=== PATIENT | female | born 1990 | race Hispanic/Latino ===

== ENCOUNTER 2018-12-24 12:45 | Outpatient (CLI) | payer OTHER ==
--- NOTE | 2018-12-24 14:43 | ULT ---
RIGHT BREAST ULTRASOUND: Date: 12/24/18 HISTORY: Palpable abnormality in the right upper inner breast. FINDINGS: Correlation is made with mammogram of same date. Sonographic evaluation of the right upper outer breast was performed. There is a dilated duct at the 1 o'clock position with presence of an echogenic mass within this duct measuring about 6.0 mm. The di lated portion of the duct measures about 11.0 mm. IMPRESSION: BIRADS Category 4 - Suspicious abnormality. Ultrasound guided biopsy is recommended. Discussed in person with the patient at 1411 hours. CODE CR. POS: OFF
--- NOTE | 2018-12-27 13:41 | MMO ---
MAMMO Bilat Diag [facility]. CLINICAL HISTORY: Patient is 28 years old and is seen for diagnostic exam and palpable abnormality in the right breast. The patient has no family history of breast cancer. The patient has no personal history of cancer. The patient has a history of left Excisional Biopsy in 2014 - fibroadenoma. VIEWS: The views performed were: bilateral craniocaudal with tomosynthesis; bilateral mediolateral; bilateral mediolateral oblique with tomosynthesis; right mediolateral oblique spot compression with tomosynthesis; right craniocaudal spot compression with tomosynthesis; right rolled lateral; and right rolled medial. FILMS COMPARED: The present examination has been compared to a prior imaging study performed at [facility] on 12/24/2018. MAMMOGRAM FINDINGS: There are scattered fibroglandular densities. Finding 1: There are no suspicious calcifications or areas of architectural distortion. Finding 2: There is focal asymmetry in the anterior right upper inner breast in the region of the Intraductal mass seen on US. IMPRESSION: FINDING 1: FINDINGS IN BOTH BREASTS ARE BENIGN. FINDING 2: FINDING IN THE RIGHT BREAST IS SUSPICIOUS. AN ULTRASOUND-GUIDED BREAST BIOPSY IS RECOMMENDED. D/W PATIENT IN PERSON ON 12/24/2018 02:11 AT PM. THE RESULTS OF THIS EXAM WERE SENT TO THE PATIENT. ACR BI-RADS Category 4 - Suspicious abnormality - biopsy should be considered MAMMOGRAPHY NOTE: 1. A negative mammogram report should not delay a biopsy if a dominant of clinically suspicious mass is present. 2. Approximately 10% to 15% of breast cancers are not detected by mammography. 3. Adenosis and dense breasts may obscure an underlying neoplasm.
== END 2018-12-24 12:46 | disposition home or self-care (01) ==
LOC: BICMAMMO 12:45
PROVIDERS: ATTEND Obstetrics & Gynecology
DX: N63.12 Unspecified lump in the right breast, upper inner quadrant (principal); Z98.890 Other specified postprocedural states
CPT/HCPCS: 77066; G0279

== ENCOUNTER → 2019-01-03 | Day surgery (SDC) | payer OTHER, SELFPAY ==
--- NOTE | 2019-01-03 16:12 | ULT ---
ULTRASOUND GUIDED RIGHT BREAST BIOPSY: DATE: 01/03/2019. PROVIDED CLINICAL HISTORY: Right breast mass. FINDINGS: Review of the patient's prior imaging is performed. Limited sonographic interrogation of the right b reast was performed in the region of palpable concern and prior imaging concern. A hypoechoic mass a t the 1:30 to 2 o'clock position of the right breast is demonstrated. This appears somewhat differen t than on the prior examination in terms of its echogenicity but is similar in size and location. An intraductal mass was not seen on the current study. Informed consent was obtained from the patient. The area overlying the right breast mass was prepped and draped in the usual sterile manner and the soft tissues infiltrated with 1% buffered Lidocaine. A small skin incision was made. Under continuous sonographic guidance, a 14-gauge biopsy device was advanced adjacent to the lesion and 4 core samples were obtained. Subsequently, sonographic guidanc e was utilized to deploy a biopsy clip adjacent to the mass. The needles were removed and hemostasis achieved. No immediate complications. Postbiopsy mammogram demonstrates appropriate clip deploymen t. IMPRESSION: Technically successful right breast biopsy. Please correlate with histology results to follow. POS: OFF
== END ==
LOC: BICULT 12:09
PROVIDERS: ATTEND Obstetrics & Gynecology
PROC: 0HBT3ZX Excision of Right Breast, Percutaneous Approach, Diagnostic (ICD-10-PCS; principal; 2019-01-03)
DX: N61.1 Abscess of the breast and nipple (principal)
CPT/HCPCS: 19083; 88305; 88341; 88342

== ENCOUNTER 2021-02-15 14:27 | Outpatient (CLI) | payer BC | END 2021-02-15 14:28 | disposition home or self-care (01) | LOC: BICMAMMO 14:27 | PROVIDERS: ATTEND Family Medicine | DX: Z12.31 Encounter for screening mammogram for malignant neoplasm of breast (principal); Z91.89 Other specified personal risk factors, not elsewhere classified | CPT/HCPCS: 77066; G0279 ==

== ENCOUNTER 2022-09-03 12:46 | Outpatient (CLI) | payer OTHER | END 2022-09-03 12:47 | disposition home or self-care (01) | LOC: ULT 12:46 | PROVIDERS: ATTEND Family Medicine | DX: E07.89 Other specified disorders of thyroid (principal); E04.1 Nontoxic single thyroid nodule | CPT/HCPCS: 76536 ==

== ENCOUNTER 2022-10-22 12:33 | Day surgery (SDC) | payer SELFPAY ==
[2022-10-22] MEDS ORDERED: Lidocaine 1% PF 5 ML VIAL ONE (12:57)
[2022-10-22] MEDS ORDERED: Sodium Bicarbonate 2.5 MEQ/5 ML VIAL ONE (12:57)
[2022-10-22 14:19] VITALS: BP 108/76; TEMP 98.1
== END 2022-10-22 13:45 | disposition home or self-care (01) ==
LOC: ULT 12:33
PROVIDERS: ATTEND Student in an Organized Health Care Education/Training Program
PROC: 0G9H3ZX Drainage of Right Thyroid Gland Lobe, Percutaneous Approach, Diagnostic (ICD-10-PCS; principal; 2022-10-22)
DX: E04.1 Nontoxic single thyroid nodule (principal)
CPT/HCPCS: 10005; 88173; 88305

== ENCOUNTER 2023-04-29 15:09 | Emergency (ER) | payer SELFPAY ==
[2023-04-29 16:40] LABS: #Basophils 0.1 thou/uL (0.0-0.2); #Eosinphils 0.1 thou/uL (0.0-0.7); #Monocytes 0.6 thou/uL (0.11-0.59); #Neutrophils 6.9 thou/uL (1.40-6.50); %Basophils 0.5 % (0.0-1.0); %Eosinophils 1.1 % (0.0-10.0); %Lymphocytes 23.1 % (21.0-51.0); %Monocytes 6.4 % (0.0-10.0); %Neutrophils 68.6 % (42.0-75.0); Hemoglobin 12.7 g/dL (12.0-16.0); Mean Corpuscular HGB CONC 32.4 g/dL (32.0-36.0); Mean Platelet Volume 9.7 fL (7.4-10.4); Platelet Count 328 10x3/uL (130-400); RBC Distribution Width 14.6 % (11.5-14.5); Red Blood Cell (RBC) Count 5.09 mill/uL (4.20-5.40)
== END 2023-04-29 17:15 | disposition home or self-care (01) ==
LOC: ERS 15:09
DX: O20.0 Threatened abortion (principal); Z3A.01 Less than 8 weeks gestation of pregnancy
CPT/HCPCS: 36415; 76801; 84702; 85025

== ENCOUNTER 2023-05-01 10:31 | Emergency (ER) | payer SELFPAY | END 2023-05-01 12:10 | disposition home or self-care (01) | LOC: ERS 10:31 | DX: N93.9 Abnormal uterine and vaginal bleeding, unspecified (principal) | CPT/HCPCS: 36415; 84702; 99283 ==

== ENCOUNTER 2024-10-09 14:50 | Outpatient (CLI) | payer OTHER | END 2024-10-09 14:51 | disposition home or self-care (01) | LOC: BICULT 14:50 | PROVIDERS: ATTEND Otolaryngology Plastic Surgery within the Head & Neck | DX: E07.9 Disorder of thyroid, unspecified (principal) | CPT/HCPCS: 76536 ==

== ENCOUNTER 2025-09-29 10:27 | Outpatient (CLI) | payer OTHER | END 2025-09-29 10:28 | disposition home or self-care (01) | LOC: ULT 10:27 | PROVIDERS: ATTEND Otolaryngology Plastic Surgery within the Head & Neck | DX: E07.9 Disorder of thyroid, unspecified (principal) | CPT/HCPCS: 76536 ==